=== PATIENT | female | born 1975 | race Caucasian/White ===

== ENCOUNTER 2021-11-12 23:02 | Emergency (ER) | payer BC, SELFPAY ==
--- NOTE | 2021-11-12 23:14 | ED_ITS ---
HPI - General Adult General Chief complaint: Chest Pain Stated complaint: Chest Pain,Dizziness,chest pain Time Seen by Provider: 11/12/21 23:14 History of Present Illness HPI narrative: Patient is a 45-year-old healthy woman with history of hypothyroidism who presents with the abrupt onset of rapid breathing tingling in her fingers chest pain increased anxiety. Symptoms began approximately 5 hours ago. She is very anxious and tearful tonight. He has had no history of heart problems in the past. She states that she is worried that with her symptoms she will not builder vacation in [place] next week. Patient has minimal cardiac risk factors. Chest pain radiates to the left shoulder she has had no numbness but does have tingling of her digits of her upper extremities. No nausea no vomiting no shortness of breath. Related Data Home Medications Medication Instructions Recorded Confirmed levothyroxine 100 mcg tablet 100 mcg PO DAILY 11/12/21 11/12/21 Allergies Allergy/AdvReac Type Severity Reaction Status Date / Time No Known Drug Allergies Allergy Verified 11/12/21 23:27 Review of Systems Status of ROS: Reports: 10 or more systems reviewed and unremarkable except as noted in History and below [facility] Medical History (Updated 11/12/21 @ 23:35 by Jam Pitts RN) Hypothyroid Plantar fasciitis, bilateral Surgical History (Updated 11/12/21 @ 23:35 by Jam Pitts RN) H/O section H/O: hysterectomy Social History Smoking Status: Never smoker How often do you have a drink containing alcohol: never How often do you have six or more drinks on one occasion: Never AUDIT-C Alcohol total score: 0 Non-prescribed substance use: denies use Exam Narrative: Exam Narrative: EXAM GENERAL: Patient appears to be in no acute distress. EYES: No scleral icterus. LYMPH: No supraclavicular or cervical lymphadenopathy. SKIN: Visible skin seen during exam normal or with benign process only. EXT: No dependent lower extremity pedal edema. HEART: Regular rate and rhythm with no murmurs, rubs, or gallops. LUNGS: Clear to auscultation bilaterally with no crackles or wheezes. ABD: Soft, non tender, non distended. PSYCH: Extremely anxious and tearful. Const: Vital Signs, click to edit/add: Vital Signs - 24 hr 11/12/21 23:15 Temperature 98.0 F Pulse Rate [Right] 72 Respiratory Rate 18 Blood Pressure [Ri ght Upper Arm] 139/92 H Pulse Oximetry 98 Course Course Hospital Course: EKG upon my review shows no acute abnormalities. Troponin point of care is negative. Vital Signs Vital signs: Initial Vital Signs Temperature 98.0 F 11/12/21 23:15 Temperature Source Temporal Artery Scan 11/12/21 23:15 Pulse Rate 72 11/12/21 23:15 Pulse Rhythm 11/12/21 23:15 Pulse Strength 3+ Normal 11/12/21 23:15 Respiratory Rate 18 11/12/21 23:15 Blood Pressure 139/92 H 11/12/21 23:15 Blood Pressure Mean 107 11/12/21 23:15 Blood Pressure Position Supine 11/12/21 23:15 Pulse Oximetry 98 11/12/21 23:15 Oxygen Delivery Method 11/12/21 23:15 Vital Signs Temperature 98.0 F 11/12/21 23:15 Pulse Rate 72 11/12/21 23:15 Respiratory Rate 18 11/12/21 23:15 Blood Pressure 139/92 H 11/12/21 23:15 Pulse Oximetry 98 11/12/21 23:15 Temperature 98.0 F 11/12/21 23:15 Pulse Rate 72 11/12/21 23:15 Respiratory Rate 18 11/12/21 23:15 Blood Pressure 139/92 H 11/12/21 23:15 Pulse Oximetry 98 11/12/21 23:15 Discharge Plan Discharge Clinical Impression: Anxiety Patient Disposition: Home, Self-Care Condition: Stable Instructions: Anxiety (ED) Additional Instructions: Please consider establishing with a primary care doctor to discuss your symptoms. Activity Level: No Restrictions Discharge Diet: Regular Prescriptions: No Action levothyroxine 100 mcg tablet 100 mcg PO DAILY 0RF Label Comments: TAKE 1 TABLET BY MOUTH DAILY Follow Up/Referrals: Mich Esparza MD [Staff Physician] - Stand Alone Forms[facility] Info Inst[facility]
[2021-11-12 23:15] VITALS: BP 139/92; PULSE 72; RESP 18; TEMP 36.7; O2SAT 98; BMI 33.3
--- NOTE | 2021-11-12 23:16 | ED.NURSE ---
Pt offered iPad mobile home park manager. Pt declines mobile home park manager and is informed that at any time she can use iPad mobile home park manager if she desires. Pt verbalizes understanding and signs form.
[2021-11-12 23:53] VITALS: BP 125/74; PULSE 72; RESP 18; TEMP 36.7; O2SAT 98
[2021-11-13 00:01] LABS: Troponin, Point-of-Care* 0.01 ng/ml (0.01-0.04)
[2021-11-13 00:03] VITALS: BP 125/78; PULSE 84; RESP 18; TEMP 36.7
== END 2021-11-13 00:04 | disposition home or self-care (01) ==
PROVIDERS: Emergency Provider Internal Medicine
DX: F41.9 Anxiety disorder, unspecified (principal)
CPT/HCPCS: 84484; 93005; 99283; 99284

== ENCOUNTER 2022-05-31 14:27 | Outpatient (CLI) | payer BC, SELFPAY ==
[2022-05-31 17:26] LABS: Albumin* 4.4 g/dL (3.3-5.0); Chloride* 106 mmol/L (96-114); Sodium* 141 mmol/L (135-149)
[2022-05-31 17:27] LABS: Potassium* 3.1 mmol/L (3.6-5.1)
[2022-05-31 17:29] LABS: Alanine Aminotransferase* 51 U/L (4-35); Aspartate Amino Transferase* 84 U/L (12-35); Bilirubin Total* 0.4 mg/dL (0.1-1.5); Blood Urea Nitrogen* 13 mg/dL (5-24); Carbon Dioxide* 30 mmol/L (20-32); Cholesterol* 210 mg/dL (90-199); Creatinine* 0.6 mg/dL (0.5-1.5); Estimated Glomerular Filt Rate 113 ml/min; Glucose* 98 mg/dL (60-115)
[2022-05-31 17:30] LABS: Calcium* 8.6 mg/dL (8.4-10.6); HDL Cholesterol* 72 mg/dL (>=50); LDL Cholesterol Calculated 110 mg/dL (<100); Triglycerides* 138 mg/dL (40-149)
[2022-05-31 18:48] LABS: Alkaline Phosphatase* 94 U/L (40-150)
== END 2022-05-31 14:28 | disposition home or self-care (01) ==
PROVIDERS: Visit Provider Family Medicine
DX: R42 Dizziness and giddiness (principal); E03.9 Hypothyroidism, unspecified; E66.9 Obesity, unspecified; F41.9 Anxiety disorder, unspecified; Z13.6 Encounter for screening for cardiovascular disorders
CPT/HCPCS: 80053; 80061; 84439; 84443

== ENCOUNTER 2022-07-30 15:47 | Outpatient (CLI) | payer BC, SELFPAY | END 2022-07-30 15:48 | disposition home or self-care (01) | PROVIDERS: Visit Provider Family Medicine | DX: R03.0 Elevated blood-pressure reading, without diagnosis of hypertension (principal); I10 Essential (primary) hypertension; E66.9 Obesity, unspecified; E03.9 Hypothyroidism, unspecified; F41.9 Anxiety disorder, unspecified | CPT/HCPCS: 80053; 84443 ==

== ENCOUNTER 2022-08-16 15:33 | Outpatient (CLI) | payer BC, SELFPAY | END 2022-08-16 15:34 | disposition home or self-care (01) | LOC: NFLDREF 08-17 10:25 | PROVIDERS: Visit Provider Family Medicine | DX: I10 Essential (primary) hypertension (principal) | CPT/HCPCS: 80048 ==

== ENCOUNTER 2022-10-15 15:04 | Outpatient (CLI) | payer BC, SELFPAY ==
--- NOTE | 2022-10-15 15:20 | CRLHL7_ITS ---
For Patients: As a result of the Century Cures Act, medical imaging exams and procedure reports are released immediately into your electronic medical record. You may view this report before your referring provider. If you have questions, please contact your health care provider. BILATERAL SCREENING MAMMOGRAM WITH COMPUTER-AIDED DETECTION AND TOMOSYNTHESIS TECHNIQUE: CC and MLO views were obtained. These mammographic images have been obtained using full-field digital technique. These mammographic images were interpreted with the benefit of computer-aided detection. Breast Tomosynthesis was used in this interpretation. COMPARISON FILM: 08/15/21, 03/23/20. FINDINGS: There are scattered areas of fibroglandular density IMPRESSION: There is no radiographic evidence for malignancy. ASSESSMENT: BI-RADS Category 1: Negative RECOMMENDATION: Routine screening mammogram in 1 year. A lay language report of this examination will be provided to the patient. Mich Bryant M.D. Diagnostic Radiologist [email or web address] KRYSTAL/Dictated by: Mich Bryant MD @ 10/16/2022 12:41:00 PM (Electronically Signed)
== END 2022-10-15 15:05 | disposition home or self-care (01) ==
LOC: MAMMO 15:07
PROVIDERS: PCP Family Medicine; Visit Provider Family Medicine
DX: Z12.31 Encounter for screening mammogram for malignant neoplasm of breast (principal)
CPT/HCPCS: 77063; 77067; T1013

== ENCOUNTER 2022-11-04 14:06 | Outpatient (CLI) | payer BC, SELFPAY | END 2022-11-04 14:07 | disposition home or self-care (01) | LOC: AMB 11-06 17:34 | PROVIDERS: Visit Provider Emergency Medicine Emergency Medical Services | DX: R07.89 Other chest pain (principal) | CPT/HCPCS: A0425; A0427 ==

== ENCOUNTER 2022-11-04 14:52 | Emergency (ER) | payer BC, SELFPAY ==
[2022-11-04 15:05] VITALS: BP 143/85; PULSE 88; RESP 20; TEMP 36.6; O2SAT 97; BMI 35.6
--- NOTE | 2022-11-04 15:12 | ED.GENADULT ---
HPI - General Adult General Chief complaint: Chest Pain Stated complaint: Panic Attack Time Seen by Provider: 11/04/22 15:05 History of Present Illness HPI narrative: This 46-year-old female comes in by ambulance because of panic and anxiety symptoms. The patient got into an argument with her significant other and began to hyperventilate and reported chest pain. She has had anxiety and panic symptoms in the past but not as intense as this. Currently she feels back to normal. She is not taking any medications for anxiety and would be interested in having something to help her. Related Data Previous Rx's Medication Instructions Recorded levothyroxine 100 mcg tablet 100 mcg PO DAILY #90 tabs 08/29/22 losartan 25 mg tablet 25 mg PO QDAY #90 tabs 10/03/22 escitalopram oxalate 10 mg tablet 10 mg PO DAILY #30 tabs 11/04/22 (Lexapro) Allergies Allergy/AdvReac Type Severity Reaction Status Date / Time No Known Drug Allergies Allergy Unverified 11/04/22 15:05 Review of Systems Status of ROS: Reports: 10 or more systems reviewed and unremarkable except as noted in History and below Narrative: Constitutional: No fevers, no weight gain or loss. Eyes: No discharge. No vision changes. HENT: No congestion, no sore throat, no ear pain. Cardiovascular: No chest pain, no palpitations. Respiratory: No shortness of breath, no wheezes, no cough. Gastrointestinal: No abdominal pain, no vomiting, no diarrhea. Genitourinary: No dysuria, no hematuria. Musculoskeletal: Normal range of motion. Skin: No rashes, no pruritis. Neurological: No dizziness, weakness, sensory change, speech change. Endo/Heme/Allergies: No bruising or bleeding. No polydipsia. Pysch: no suicidality, no insomnia. Anxiety and panic symptoms. All other systems reviewed and are negative. [facility] Medical History (Updated 11/04/22 @ 16:53 by Maximus Hunter MD) Dizziness ?R42 - Dizziness and giddiness (ICD-10) Stress ?F43.9 - Reaction to severe stress, unspecified (ICD-10) Elevated systolic blood pressure reading without diagnosis of hypertension ?R03.0 - Elevated blood-pressure reading, without diagnosis of hypertension (ICD-10) Prediabetes (05/2022) ?R73.03 - Prediabetes (ICD-10) Romanian speaking patient Obesity (BMI 30.0-34.9) ?E66.9 - Obesity, unspecified (ICD-10) Plantar fasciitis, bilateral ?M72.2 - Plantar fascial fibromatosis (ICD-10) Hypothyroid ?E03.9 - Hypothyroidism, unspecified (ICD-10) Surgical History H/O: hysterectomy (2014) ?Z90.710 - Acquired absence of both cervix and uterus (ICD-10) H/O section ?Z98.891 - History of uterine scar from previous surgery (ICD-10) Family History High blood pressure Mother Father Stroke Mother Father Paternal Grandmother Uncle Social History Narrative: , 3 children , 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 Non-smoker 3/ week walking 60min Smoking Status: Never smoker Do you use any of these nicotine containing products: None Second hand tobacco smoke exposure: No How often do you have a drink containing alcohol: monthly or less How many standard drinks containing alcohol do you have on a typical day: 1 or 2 How often do you have six or more drinks on one occasion: Never AUDIT-C Alcohol total score: 1 Non-prescribed substance use: denies use Little interest or pleasure in doing things: not at all Feeling down, depressed, or hopeless: not at all service: No Exam Narrative: Exam Narrative: Constitutional: Well-developed, well-nourished, no acute distress. HEENT: Normocephalic, atraumatic. Neck: Normal range of motion. Nontender. Supple. Heart: Regular. No murmurs. Normal rate. Intact distal pulses. Lungs: Clear to auscultation. No chest discomfort. No wheezes, rhonchi, or rales. Abdomen: Normal bowel sounds. Nontender. No rebound tenderness. Genitalia: Deferred. Back: No midline tenderness. Normal range of motion. Extremities: Normal range of motion. No injury. Skin: Intact. No rash. Warm. No erythema or pallor. Neurologic: No altered sensation. No weakness. Alert and oriented. Psychiatric: No suicidality. No anxiety or depression. No insomnia. Nursing notes and vitals signs are reviewed. Const: Vital Signs, click to edit/add: Vital Signs - 24 hr 11/04/22 15:05 Temperature 97.9 F Pulse Rate [Pulse Oximeter] 88 Respiratory Rate 20 Blood Pressure [Ri ght Upper Arm] 143/85 H Pulse Oximetry 97 Oxygen Delivery Me thod Room Air Course Vital Signs Vital signs: Initial Vital Signs Temperature 97.9 F 11/04/22 15:05 Temperature Source Temporal Artery Scan 11/04/22 15:05 Pulse Rate 88 11/04/22 15:05 Pulse Rhythm Regular 11/04/22 15:05 Respiratory Rate 20 11/04/22 15:05 Blood Pressure 143/85 H 11/04/22 15:05 Blood Pressure Mean 104 11/04/22 15:05 Blood Pressure Position Supine 11/04/22 15:05 Pulse Oximetry 97 11/04/22 15:05 Oxygen Delivery Method Room Air 11/04/22 15:05 Vital Signs Temperature 97.9 F 11/04/22 15:05 Pulse Rate 88 11/04/22 15:05 Respiratory Rate 20 11/04/22 15:05 Blood Pressure 143/85 H 11/04/22 15:05 Pulse Oximetry 97 11/04/22 15:05 Oxygen Delivery Method Room Air 11/04/22 15:05 Temperature 97.9 F 11/04/22 15:05 Pulse Rate 88 11/04/22 15:05 Respiratory Rate 20 11/04/22 15:05 Blood Pressure 143/85 H 11/04/22 15:05 Pulse Oximetry 97 11/04/22 15:05 Oxygen Delivery Method Room Air 11/04/22 15:05 Medical Decision Making MDM Narrative Medical decision making narrative: This patient comes in because of panic and anxiety symptoms that have dissipated significantly by the time she arrives here. She states that she has episodes like this and is interested in having some medication to help prevent them or manage their symptoms. Labs are acquired which returned with reassuring results. Additionally EKG shows normal sinus rhythm without any sign of strain or injury to the heart. The patient did receive an oral dose of Ativan 1 mg and states that she is feeling better. I did discuss options going forward and she agreed to try Lexapro 10 mg daily. She understands that this medicine may take some time to bring benefit and that she will need to follow-up with her primary physician in 2-3 weeks to review it. Lab Data Labs: Lab Results 11/04/22 11/04/22 Range/Units 15:12 15:30 WBC 12.57 H (4.50-11.00) K/uL RBC 4.71 (4.00-5.20) m/uL Hgb 13.2 (12.0-16.0) gm/dL Hct 40.5 (33.0-51.0) % MCV 86 (80-100) fL MCH 28 (26-34) pg MCHC 33 (32-36) gm/dL RDW Coeff of Gisela 13.1 (11.5-15.5) % Plt Count 304 (140-440) K/uL Neut % (Auto) 84.5 H (42.0-72.0) % Lymph % (Auto) 9.6 L (20-44) % [place] % (Auto) 4.5 (0.0-11.0) % Eos % (Auto) 0.1 (0.0-7.0) % Baso % (Auto) 0.2 (0.0-3.0) % Neut # (Auto) 10.60 H (1.7-7.0) K/uL Lymph # (Auto) 1.20 (0.90-2.90) K/uL [place] # (Auto) 0.60 (0.00-0.90) K/UL Eos # (Auto) 0.00 (0.00-0.50) K/uL Baso # (Auto) 0.00 (0.00-0.30) K/uL Sodium 140 (135-149) mmol/L Potassium 3.2 L (3.6-5.1) mmol/L Chloride 105 (96-114) mmol/L Carbon Dioxide 26 (20-32) mmol/L BUN 11 (5-24) mg/dL Creatinine 0.6 (0.5-1.5) mg/dL Estimated Creat Clear 98.98 Estimated GFR 113 ml/min Glucose 109 (60-115) mg/dL Calcium 9.2 (8.4-10.6) mg/dL POC Troponin I 0.02 (0.01-0.04) ng/ml ECG Data Attestation: I personally reviewed and interpreted this ECG as follows: Interpretation: Normal sinus rhythm. Rate is 92 beats per minute. There are no ST or T-wave abnormalities. Discharge Plan Discharge Clinical Impression: Anxiety Patient Disposition: Home w/ Parent or Adult Condition: Improved Additional Instructions: Take medication as prescribed. Follow up with primary physician in 2-3 weeks to review if this medication. Return if worsening. Prescriptions: New escitalopram oxalate [Lexapro] 10 mg tablet 10 mg PO DAILY Qty: 30 2RF No Action losartan 25 mg tablet 25 mg PO QDAY Qty: 90 3RF levothyroxine 100 mcg tablet 100 mcg PO DAILY Qty: 90 3RF Follow Up/Referrals: Provider,Not a Local [Primary Care Provider] - Stand Alone Forms: [facility] Info Instructions
[2022-11-04] MEDS: LORazepam 1 MG TABLET PO (15:25)
[2022-11-04 15:46] LABS: Basophils Percent Auto 0.2 % (0.0-3.0); Eosinophils Percent Auto 0.1 % (0.0-7.0); Hematocrit 40.5 % (33.0-51.0); Hemoglobin* 13.2 gm/dL (12.0-16.0); Immature Granulocytes Pct Auto 1.1 %; Lymphocytes Percent Auto 9.6 % (20-44); Mean Corpuscular HGB Conc 33 gm/dL (32-36); Mean Corpuscular Hemoglobin 28 pg (26-34); Mean Corpuscular Volume 86 fL (80-100); Monocytes Percent Auto 4.5 % (0.0-11.0); Neutrophils Percent Auto 84.5 % (42.0-72.0); Platelet Count* 304 K/uL (140-440); RDW Coefficient of Variation % 13.1 % (11.5-15.5); Red Blood Count 4.71 m/uL (4.00-5.20); White Blood Count* 12.57 K/uL (4.50-11.00)
[2022-11-04 15:49] LABS: Slide Review Reflex No
[2022-11-04 16:11] LABS: Chloride* 105 mmol/L (96-114); Potassium* 3.2 mmol/L (3.6-5.1); Sodium* 140 mmol/L (135-149)
[2022-11-04 16:14] LABS: Blood Urea Nitrogen* 11 mg/dL (5-24); Carbon Dioxide* 26 mmol/L (20-32); Creatinine* 0.6 mg/dL (0.5-1.5); Est. Creatinine Clearance* 98.98; Estimated Glomerular Filt Rate 113 ml/min; Glucose* 109 mg/dL (60-115)
[2022-11-04 16:15] LABS: Calcium* 9.2 mg/dL (8.4-10.6)
[2022-11-04 16:41] LABS: Troponin, Point-of-Care* 0.02 ng/ml (0.01-0.04)
[2022-11-04 17:17] VITALS: BP 128/82; PULSE 84; RESP 20; TEMP 36.3; O2SAT 98
== END 2022-11-04 18:08 | disposition home or self-care (01) ==
PROVIDERS: Emergency Provider Emergency Medicine Emergency Medical Services
DX: F41.9 Anxiety disorder, unspecified (principal)
CPT/HCPCS: 36415; 80048; 84484; 85025; 93005; 99284; A9270

== ENCOUNTER 2023-01-10 14:02 | Outpatient (CLI) | payer BC, SELFPAY ==
[2023-01-10 17:24] LABS: Chlamydia DNA Amplified* NOT DETECTED (No Detected); GC DNA Amplified* NOT DETECTED (No Detected)
== END 2023-01-10 14:03 | disposition home or self-care (01) ==
LOC: NFLDREF 14:02
PROVIDERS: Visit Provider Family Medicine
DX: N89.8 Other specified noninflammatory disorders of vagina (principal)
CPT/HCPCS: 87491; 87591

== ENCOUNTER 2023-04-08 07:06 | Outpatient (CLI) | payer BC, SELFPAY | END 2023-04-08 07:07 | disposition home or self-care (01) | LOC: NFLDREF 07:08 | PROVIDERS: PCP Family Medicine; Visit Provider Family Medicine | DX: I10 Essential (primary) hypertension (principal); R73.03 Prediabetes; E03.9 Hypothyroidism, unspecified | CPT/HCPCS: 80053; 80061; 84439; 84443 ==

== ENCOUNTER 2023-04-21 07:42 | Outpatient (CLI) | payer BC, SELFPAY ==
--- NOTE | 2023-04-21 09:19 | W.ANESCHARGE ---
Anesthesia Charges Start Date/Time Anesthesia Start Date: 04/21/23 Anesthesia Start Time: 08:45 Stop Date/Time Anesthesia Stop Date: 04/21/23 Anesthesia Stop Time: 09:15
--- NOTE | 2023-04-21 11:45 | W.ANESCHARGE ---
Anesthesia Charges Start Date/Time Anesthesia Start Date: 04/21/23 Anesthesia Start Time: 08:45 Stop Date/Time Anesthesia Stop Date: 04/21/23 Anesthesia Stop Time: 09:15
== END 2023-04-21 07:43 | disposition home or self-care (01) ==
LOC: OP CLINIC 07:44
PROVIDERS: PCP Family Medicine; Visit Provider Internal Medicine
DX: Z12.11 Encounter for screening for malignant neoplasm of colon (principal)
CPT/HCPCS: 00812; 45378; T1013; J2704

== ENCOUNTER 2023-06-12 08:25 | Outpatient (CLI) | payer BC, SELFPAY ==
--- OUTSIDE RECORDS SUMMARY | 2023-06-12 08:31 | XMS_ITS | Clinical Summary ---
Author Name Unknown Organization [facility] Address [place], [place] [address] Care Team Providers Care Melt Down Furnace Operator Name Role Phone Pcp, No Primary Care Provider Unavailabl e Allergies No known active allergies Medications Medication Sig Dispensed Refills Start Date End Date Status naproxen (NAPROSYN) 500 mg tabletIndications:Hea dache in front of head Take 1 tablet by mouth 2 times daily with meals. 60 tablet 1 09/26/2017 Active Active Problems No known active problems Immunizations Name Administration Dates Next Due Influenza, IIV3 (Age >=3 years) 03/12/2006 Influenza, IIV4 05/14/2017 Tdap 12/12/2016 Social History Tobacco Use Types Packs/Day Years Used Date Smoking Tobacco: Never Smokeless Tobacco: Never Tobacco Cessation:Counseling Given: Yes Alcohol Use Standard Drinks/Week Comments No 0 (1 standard drink = 0.6 oz pur e alcohol) Sex and Gender Information Value Date Recorded Sex Assigned at Not on file Gender Identity Not on file Sexual Orientation Not on file Obstetrics History Last Filed Vital Signs Vital Sign Reading Time Taken Comments Blood Pressure 117/78 01/27/2018 1:51 PM CDT Pulse 67 01/27/2018 1:51 PM CDT Temperature 36.6 ??C (97.9 ??F) 01/27/2018 1:51 PM CD T Respiratory Rate - - Oxygen Saturation 98% 01/27/2018 1:51 PM CDT Inhaled Oxygen Concentration - - Weight 88.6 kg (195 lb 4.8 oz) 01/27/2018 1:51 P M CDT Height 160 cm (5' 2.99) 01/27/2018 1:51 PM CDT Body Mass Index 34.6 01/27/2018 1:51 PM CDT Plan of Treatment Health Maintenance Due Date Last Done Comments COVID-19 vaccine series (#1) 06/18/1978 HIV for age 15-65 1992 Hepatitis C screening for age 18-79 12/17/1995 Depression screening for age 12+ 12/12/2017 12/12/2016, 12/04/2015 BMI (ht and wt on same day) for age 18+ 01/27/2019 01/27/2018, 09/26/2017, 12/12/2016, Additional history exists Colonoscopy through age 75 2022 Lipids for age 45-75 2022 12/12/2016 Mammogram for age 45-75 2022 Influenza for age 9-49 01/03/2023 05/14/2017, 2005 Tetanus booster 12/12/2026 12/12/2016 Tdap Completed 12/12/2016 Pneumococcal series for age 6-64 Aged Out No longer eligible based on patient's age to complete this topic Care Teams Melt Down Furnace Operator Relationship Specialty Start Date End Date Pcp, No . PCP - General 01/14/12
[2023-06-12 19:06] LABS: Chlamydia DNA Amplified* Not Detected (No Detected); GC DNA Amplified* Not Detected (No Detected)
== END 2023-06-12 08:26 | disposition home or self-care (01) ==
LOC: NFLDREF 08:25
PROVIDERS: PCP Family Medicine; Visit Provider Family Medicine
DX: N89.8 Other specified noninflammatory disorders of vagina (principal)
CPT/HCPCS: 87491; 87591

== ENCOUNTER 2023-07-11 15:52 | Outpatient (CLI) | payer BC, SELFPAY | END 2023-07-11 15:53 | disposition home or self-care (01) | LOC: NFLDREF 07-14 06:23 | PROVIDERS: PCP Family Medicine; Referring Provider Family Medicine; Visit Provider Family Medicine | DX: E03.9 Hypothyroidism, unspecified (principal) | CPT/HCPCS: 84439; 84443 ==

== ENCOUNTER 2023-10-13 15:55 | Outpatient (CLI) | payer BC, SELFPAY ==
--- OUTSIDE RECORDS SUMMARY | 2023-10-28 12:46 | XMS_ITS | Data Portability ---
Author Organization [facility] Address [address] [place], [place] [address] [address] Assessment No assessment recorded. Plan of Treatment Reminders Order Date Submit Date Provider Last Modified By Organization Details Last Modified Time Details Appointments None record ed. Lab None record ed. Referral None record ed. Procedures None record ed. Surgeries None record ed. Imaging None record ed. Medication Orders None record ed. Patient TargetsNo targets recorded. Patient InstructionsNo instructions recorded. Reason for Referral None Reported. Medical Equipment None Reported. Medications Name Sig Start Date Stop Date Status Note LastModified by Organization Details LastModified Time ondansetron HCl 4 mg tablet active Not Available Not Available Not Available ciprofloxacin 500 mg tablet active Not Available Not Availabl e Not Available levothyroxine 100 mcg tablet active Not Available Not Availab le Not Available levothyroxine 150 mcg tablet active Not Available Not Availab le Not Available Vitals None Recorded Social History None recorded. Functional Status None recorded. Mental Status None recorded. Family History Nothing Reported. Medical History No medical history recorded. Gynecological HistoryNo gynecological history recorded. Obstetrics History GPAL:G 0 P 0 0 0 0 Past Encounters Encounter ID Performer Location Encounter Start Date Encounter Closed Date Diagnosis/Indication Diagnosis SNOMED-CT Code 351 Joyce Real NP [facility] [address] [place] [id number] 10/13/2019 14:10:03 10/13/2019 14:24:37 SARS-CoV-2 [id number] Health Concerns Section Related Observation LastModified by Organization Detai ls LastModified Time None Recorded Concern Status LastModified by Organization Details LastModified Time None Recorded Advance Directives Directive None Recorded Payers Encounter Date Sequence Insurance Name Policy Number Policy Martínez Covered Member ID Martínez Member ID Guarantor Name 10/13/2019 SLIDING FEE SCHEDULE - DISCOUNT Priscilla Chau [facility] Episode No OBEpisode recorded.
--- OUTSIDE RECORDS SUMMARY | 2023-10-28 12:46 | XMS_ITS | Clinical Summary ---
Author Organization [facility] Address [place], [place] [address] Care Team Providers Care Web Design Instructor Name Role Phone Pcp, No Primary Care [...] Health Maintenance Due Date Last Done Comments HIV for age 15-65 1992 Hepatitis C screening for age 18-79 12/17/1995 Depression screening for age 12+ 12/12/2017 12/12/2016, 12/04/2015 BMI (ht and wt on same day) for age 18+ 01/27/2019 01/27/2018, 09/26/2017, 12/12/2016, Additional history exists Colonoscopy through age 75 2022 Lipids for age 45-75 2022 12/12/2016 Mammogram for age 45-75 2022 COVID-19 vaccine series ( season) 2023 Influenza for age 9-49 01/04/2024 05/14/2017, 2005 Tetanus booster 12/12/2026 12/12/2016 Tdap Completed 12/12/2016 Pneumococcal series for age 6-64 Aged Out No longer eligible based on patient's age to complete this topic Procedures Procedure Name Priority Date/Time Associated Diagnosis Comments LIPID PANEL W REFLEX MEASURED LDL Routine 12/12/2016 5:06 PM CDT Screening for lipid disorders from Last 3 Months or Most Recently Relevant to Health Maintenance Results * LIPID PANEL W REFLEX MEASURED LDL (12/12/2016 5:06 PM CDT) CHOLESTEROL,TOTAL 179 100 - 199 mg/dL 12/13/2016 1:44 PM CDT [facility] [employer] [facility] TRIGLYCERIDES 87 <150 mg/dL 12/13/2016 1:44 PM CDT [facility] HDL CHOLESTEROL 52 >40 mg/dL 7 1:44 PM CDT [facility] NON-HDL CHOLESTEROL 127 <145 mg/dl 12/13/2016 1:44 PM CDT [facility] CHOL/HDL RATIO 3.44 <4.50 12/13/2016 1:44 PM CDT [facility] LDL CHOLESTEROL 110 <=130 mg/dL 12/13/2016 1:44 PM CDT [facility] PATIENT STATUS FASTING 12/13/2016 1:44 PM CDT [facility] Blood BLOOD SPECIMEN / Unknown Venipuncture / Unknown 12/12/2016 5:06 PM CDT 12/12/2016 5:06 PM CDT Shauna MCDONNELL CHEMISTRY [facility] [address] [place] [address], [facility] [address] [place] [address], from Last 3 Months or Most Recently Relevant to Health Maintenance Care Teams Web Design Instructor Relationship Specialty Start Date End Date Pcp, No . PCP - General 01/14/12
== END 2023-10-13 15:56 | disposition home or self-care (01) ==
LOC: NFLDREF 10-28 12:45
PROVIDERS: PCP Family Medicine; Referring Provider Family Medicine; Visit Provider Family Medicine
DX: E03.9 Hypothyroidism, unspecified (principal); R73.03 Prediabetes; I10 Essential (primary) hypertension
CPT/HCPCS: 80053; 84439; 84443

== ENCOUNTER 2024-01-21 07:25 | Outpatient (CLI) | payer BC, SELFPAY ==
--- OUTSIDE RECORDS SUMMARY | 2024-01-22 08:49 | XMS_ITS | Data Portability ---
Author Organization [facility] Address [address] [place], [place] [address] [address] Assessment No assessment recorded. Plan of Treatment [...] Encounter Closed Date Diagnosis/Indication Diagnosis SNOMED-CT Code Diagnosis ICD10 Code 351 Joyce Real NP [facility] [address] [place] [address] [facility] [address] 10/13/2019 14:10:03 10/13/2019 14:24:37 SARS-CoV-2 [id number] U07.1 Health Concerns Section Related Observation LastModified by Organization Detai ls LastModified Time None Recorded Concern Status LastModified by Organization Details LastModified Time None Recorded Advance Directives Directive None Recorded Payers Encounter Date Sequence Insurance Name Policy Number Policy Martínez Covered Member ID Martínez Member ID Guarantor Name 10/13/2019 SLIDING FEE SCHEDULE - DISCOUNT Priscilla Chau [facility] Episode No OBEpisode recorded.
--- OUTSIDE RECORDS SUMMARY | 2024-01-22 08:49 | XMS_ITS | Clinical Summary ---
Author Organization [employer] [facility] Address [place], [place] [address] Care Team Providers Care Supervisor Cigarette Making Department Name Role Phone Pcp, No Primary Care [...] 45-75 2022 COVID-19 vaccine series ( season) 2024 Influenza for age 9-49 01/04/2024 05/14/2017, 2005 [...] - 199 mg/dL 12/13/2016 1:44 PM CDT [facility] [employer] [facility] TRIGLYCERIDES 87 <150 mg/dL 12/13/2016 1:44 PM CDT [facility] HDL CHOLESTEROL 52 >40 mg/dL 7 1:44 PM CDT [facility] NON-HDL CHOLESTEROL 127 <145 mg/dl 12/13/2016 1:44 PM CDT [facility] CHOL/HDL RATIO 3.44 <4.50 12/13/2016 1:44 PM CDT [facility] LDL CHOLESTEROL 110 <=130 mg/dL 12/13/2016 1:44 PM CDT [facility] PATIENT STATUS FASTING 12/13/2016 1:44 PM CDT [facility] Blood BLOOD SPECIMEN / Unknown Venipuncture / Unknown 12/12/2016 5:06 PM CDT 12/12/2016 5:06 PM CDT Shauna MCDONNELL CHEMISTRY [facility] [address] [place] [address], [facility] [address] [place] [address], from Last 3 Months or Most Recently Relevant to Health Maintenance Care Teams Supervisor Cigarette Making Department Relationship Specialty Start Date End Date Pcp, No . PCP - General 01/14/12
== END 2024-01-21 07:26 | disposition home or self-care (01) ==
LOC: NFLDREF 01-22 08:47
PROVIDERS: PCP Family Medicine; Referring Provider Family Medicine; Visit Provider Family Medicine
DX: E03.9 Hypothyroidism, unspecified (principal); E87.6 Hypokalemia; I10 Essential (primary) hypertension
CPT/HCPCS: 80048; 84439; 84443

== ENCOUNTER 2024-04-02 07:25 | Outpatient (CLI) | payer BC, SELFPAY ==
--- OUTSIDE RECORDS SUMMARY | 2024-04-02 11:03 | XMS_ITS | Clinical Summary ---
Author Organization [facility] Address [place], [place] [address] Care Team Providers Care Civil Engineering Draftsperson Name Role Phone Pcp, No Primary Care [...] 69 01/27/2018 1:51 PM CDT Temperature 36.6 C (97.9 F) 01/27/2018 1:51 PM CDT Respiratory Rate - - Oxygen Saturation 98% [...] - 199 mg/dL 12/13/2016 1:44 PM CDT [facility] TRIGLYCERIDES 87 <150 mg/dL 12/13/2016 1:44 PM CDT [facility] HDL CHOLESTEROL 52 >40 mg/dL 7 1:44 PM CDT [facility] NON-HDL CHOLESTEROL 127 <145 mg/dl 12/13/2016 1:44 PM CDT [facility] CHOL/HDL RATIO 3.44 <4.50 12/13/2016 1:44 PM CDT [facility] LDL CHOLESTEROL 110 <=130 mg/dL 12/13/2016 1:44 PM CDT [facility] PATIENT STATUS FASTING 12/13/2016 1:44 PM CDT [facility] Blood BLOOD SPECIMEN / Unknown Venipuncture / Unknown 12/12/2016 5:06 PM CDT 12/12/2016 5:06 PM CDT Shauna MCDONNELL CHEMISTRY [facility] [address] [place] [address], [facility] [address] [place] [address], from Last 3 Months or Most Recently Relevant to Health Maintenance Care Teams Civil Engineering Draftsperson Relationship Specialty Start Date End Date Pcp, No . PCP - General 01/14/12
== END 2024-04-02 07:26 | disposition home or self-care (01) ==
LOC: NFLDREF 11:02
PROVIDERS: PCP Family Medicine; Referring Provider Family Medicine; Visit Provider Family Medicine
DX: I10 Essential (primary) hypertension (principal); E03.9 Hypothyroidism, unspecified; R73.03 Prediabetes; E78.5 Hyperlipidemia, unspecified
CPT/HCPCS: 80053; 80061; 84439; 84443

== ENCOUNTER 2024-07-02 13:31 | Outpatient (CLI) | payer BC, SELFPAY | END 2024-07-02 13:32 | disposition home or self-care (01) | LOC: MAMMO 13:32 | PROVIDERS: PCP Family Medicine; Visit Provider Family Medicine | DX: Z12.31 Encounter for screening mammogram for malignant neoplasm of breast (principal); R92.333 Mammographic heterogeneous density, bilateral breasts | CPT/HCPCS: 77063; 77067; T1013 ==

== ENCOUNTER 2024-07-09 15:37 | Outpatient (CLI) | payer BC, SELFPAY | END 2024-07-09 15:38 | disposition home or self-care (01) | LOC: NFLDREF 07-13 06:27 | PROVIDERS: PCP Family Medicine; Referring Provider Family Medicine; Visit Provider Family Medicine | DX: E03.9 Hypothyroidism, unspecified (principal); R53.83 Other fatigue; R73.03 Prediabetes; R23.3 Spontaneous ecchymoses | CPT/HCPCS: 82728; 84439; 84443 ==

== ENCOUNTER 2024-09-17 08:08 | Outpatient (CLI) | payer BC, SELFPAY | END 2024-09-17 08:09 | disposition home or self-care (01) | LOC: NFLDREF 09-24 00:37 | PROVIDERS: PCP Family Medicine; Referring Provider Family Medicine; Visit Provider Family Medicine | DX: I10 Essential (primary) hypertension (principal); E03.9 Hypothyroidism, unspecified | CPT/HCPCS: 80053; 84439; 84443 ==

== ENCOUNTER 2024-12-24 16:03 | Outpatient (CLI) | payer BC, SELFPAY | END 2024-12-24 16:04 | disposition home or self-care (01) | LOC: NFLDREF 12-28 17:38 | PROVIDERS: PCP Family Medicine; Referring Provider Family Medicine; Visit Provider Family Medicine | DX: E03.9 Hypothyroidism, unspecified (principal); R73.03 Prediabetes; I10 Essential (primary) hypertension | CPT/HCPCS: 80053; 84439; 84443 ==

== ENCOUNTER 2025-01-14 16:00 | Outpatient (CLI) | payer BC, SELFPAY | END 2025-01-14 16:01 | disposition home or self-care (01) | LOC: NFLDREF 01-19 18:32 | PROVIDERS: PCP Family Medicine; Referring Provider Family Medicine; Visit Provider Family Medicine | DX: I10 Essential (primary) hypertension (principal) | CPT/HCPCS: 80048 ==

== ENCOUNTER 2025-03-18 15:36 | Outpatient (CLI) | payer BC, SELFPAY | END 2025-03-18 15:37 | disposition home or self-care (01) | LOC: NFLDREF 03-23 19:29 | PROVIDERS: PCP Family Medicine; Referring Provider Family Medicine; Visit Provider Family Medicine | DX: I10 Essential (primary) hypertension (principal); E03.9 Hypothyroidism, unspecified | CPT/HCPCS: 80053; 84443 ==